=== PATIENT | male | born 1990 | race African-American/Black ===

== ENCOUNTER 2018-12-27 09:58 | Emergency (ER) | payer MEDICAID ==
[~2018-12-27] VITALS: Ht 167.6 cm; Wt 73.0 kg
[2018-12-27] MEDS ORDERED: LORAZEPAM 2MG/ML CPJ IM STA (10:19)
[2018-12-27] MEDS ORDERED: HALOPERIDOL LACTATE 5MG/ML VIAL IM STA (10:19)
[2018-12-27 10:44] LABS: BASOPHILS % 0.3 % (0.0-2.0); EOSINOPHILS % 0.1 % (0.0-5.0); HEMATOCRIT. 41.5 % (42.0-52.0); HEMOGLOBIN. 13.6 g/dL (14.0-18.0); LYMPHOCYTES % 50.6 % (20.0-50.0); MEAN CORPUSCULAR VOLUME 88.8 fL (80.0-94.0); MEAN PLATELET VOLUME 10.1 fl (7.4-10.4); MONOCYTES % 12.3 % (2.0-8.0); NEUTROPHILS % 36.7 % (40.0-76.0); PLATELET 208 x1000/uL (130-400); RED BLOOD CELL COUNT 4.67 mill/uL (4.7-6.1); RED CELL DISTRIBUTION WIDTH 13.9 % (11.6-14.6)
[2018-12-27] MEDS ORDERED: LORAZEPAM 2MG/ML CPJ IV ONE (10:45)
[2018-12-27] MEDS ORDERED: SODIUM CHLORIDE 0.9% 1,000 ML IV ONE (10:45)
[2018-12-27 10:46] LABS: CLARITY URINE CLEAR (CLEAR); COLOR URINE YELLOW (YELLOW); KETONES URINE NEGATIVE (NEGATIVE); LEUKOCYTE ESTERASE URINE NEGATIVE (NEGATIVE); NITRITE URINE NEGATIVE (NEGATIVE); OCCULT BLOOD URINE NEGATIVE (NEGATIVE); PROTEIN URINE NEGATIVE (NEGATIVE); SPECIFIC GRAVITY URINE 1.002 (1.005-1.030); UROBILINOGEN URINE 0.2 E.U./dL (0.2-1.0)
[2018-12-27 10:50] LABS: CHLORIDE 101 mEq/L (98-107)
[2018-12-27 10:55] LABS: ETHANOL BLOOD < 10 mg/dL
[2018-12-27 10:59] LABS: CREATINE KINASE 228 IU/L (39-308)
[2018-12-27 11:07] LABS: *AMPHETAMINES SCREEN URINE PRESUMTIVE POSITIVE (NEGATIVE); *BARBITURATES SCREEN URINE NEGATIVE (NEGATIVE); *BENZODIAZEPINES SCREEN URINE NEGATIVE (NEGATIVE); *COCAINE SCREEN URINE NEGATIVE (NEGATIVE); CANNABINOID URINE SCREEN NEGATIVE (NEGATIVE); METHADONE URINE SCREEN NEGATIVE (NEGATIVE); OPIATES URINE SCREEN NEGATIVE (NEGATIVE)
[2018-12-27 11:29] LABS: PHENCYCLIDINE URINE SCREEN NEGATIVE (NEGATIVE)
[2018-12-27] MEDS ORDERED: POTASSIUM CHLORIDE 20MEQ TABLET SR PO ONE (12:00)
[2018-12-27 14:48] VITALS: BP 122/85
== END 2018-12-27 15:09 | disposition home or self-care (01) ==
LOC: ER 10:03
DX: G93.40 Encephalopathy, unspecified (principal); F41.9 Anxiety disorder, unspecified; T43.621A Poisoning by amphetamines, accidental (unintentional), initial encounter; Y92.9 Unspecified place or not applicable
CPT/HCPCS: 36415; 80053; 80305; 80307; 80320; 80329; 81003; 82550; 84484; 85025; 93005; 96360; 96372; 99284; J1630; J2060; J7030; G0480